=== PATIENT | female | born 1935 | race Caucasian/White ===

== ENCOUNTER 2016-12-17 14:50 | Observation (INO) ==
--- NOTE | 2016-12-17 15:33 | Emergency Department Note ---
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 No history of prior TIA no history of cardiac abnormalities. Patient states he is visiting her sister senior care and her younger sister states that for about a 5 minute spell patient was unable to engage in any activities and was awake but unable to engage or comprehend any activities. Patient states that she was not too alarmed by her symptoms 2 days ago but spoke to her PCP is today and was directed to come to the ED. Patient is from out of town and this is her first time here. Patient admits to pain over the right eye and patient's sister reports some flushing of her right cheek at the time of the incident. But does not complain of that now. Patient also states she has some numbness and tingling in her left hand. Patient has a history of thyroidectomy This patient denies ever smoking or tobacco use. Denies illicit drug use. Symptom Onset Unknown: Yes Timing confirmed by: family member Symptoms Improving: No - Related Data Home Medications: Home Medications Medication Instructions Recorded Confirmed Aspirin Enteric Coated [Aspirin EC] 81 mg PO DAILY 12/17/16 12/17/16 Cholecalciferol (D-3) [Vitamin D] 1,000 unit PO DAILY 12/17/16 12/17/16 Cyanocobalamin (Vitamin B-12) 100 mcg PO DAILY 12/17/16 12/17/16 [Vitamin B-12] Krill/Om-3/Dha/Epa/Phospho/Ast 1 each PO DAILY 12/17/16 12/17/16 [Krill Oil 1,000 mg Softgel] Levothyroxine [Synthroid] 50 mcg PO 0630 12/17/16 12/17/16 Turmeric Root Extract [Turmeric] 500 mg PO DAILY 12/17/16 12/17/16 Ubidecarenone [Co Q-10] 100 mg PO DAILY 12/17/16 12/17/16 Allergies/Adverse Reactions: Allergies Allergy/AdvReac Type Severity Reaction Status Date / Time No Known Allergies Allergy Verified 12/17/16 15:25 Review of Systems: Denies fevers, chills, nausea, vomiting, lightheadedness, dizziness, facial drooping, difficulty speaking, numbness and tingling elsewhere, weakness unilateral or global. Patient denies heart palpitations chest pain shortness of breath as well. Patient denies signs dysuria, no stool incontinence. All systems ED: reviewed and negative except as stated. Review of Systems: As Per HPI Limitations: ROS unobtainable due to patients medical condition Past Medical History - Past Medical History Attestation: Yes The following information was validated with the patient. Source: patient, obtained from family (Sister present in the room) Medical history: Reports: thyroid disease Psychiatric history: Reports: no psych history - Social History Smoking Status: Never smoker Smokeless Tobacco Status: No Alcohol use: Reports: none Drug use: Reports: none Physical Exam Vital Signs Temperature 98.2 F 12/17/16 15:03 Pulse Rate 62 12/17/16 15:03 Respiratory Rate 16 12/17/16 15:03 Blood Pressure 177/73 12/17/16 15:03 O2 Sat by Pulse Oximetry 99 12/17/16 15:03 Temperature 98.2 F 12/17/16 15:03 Pulse Rate 62 12/17/16 15:03 Respiratory Rate 16 12/17/16 15:03 Blood Pressure 177/73 12/17/16 15:03 O2 Sat by Pulse Oximetry 99 12/17/16 15:03 Oxygen Delivery Oxygen Delivery Room Air -General Appearance: Patient is a 81-year-old female who is alert and oriented 3 and in no acute distress. Patient appears comfortable and smiles. Absent moved to the right side of patient's bed because patient is unable to see on the left half of visual field -Neurological exam: Cranial nerves II-12 intact, no focal deficits observed, strength equal 5/5 bilaterally in upper and lower extremities, cerebellar motion test negative. Negative loss of sensation, patient able to perform rapid also a movements of hand, there is a rub he will of right leg down the left foster and alternate. - Head Head exam: atraumatic, normocephalic, normal inspection - Eye Eye exam: Present: normal appearance, PERRL, EOMI, negative for scleral icterus negative for conjunctival pallor - ENT ENT exam: normal exam, normal oropharynx, mucous membranes moist - Neck Neck exam: Present: normal inspection, full ROM, trachea midline, negative JVD - Chest Chest inspection: Present: Patient has bilateral equal rise and fall of chest wall. Non-tender to palpation. - Respiratory Respiratory exam: Clear to auscultation bilaterally without wheezes rales or rhonchi Cardiovascular Cardiovascular exam: Present: regular rate, normal rhythm, normal heart sounds, without murmurs rubs or gallops. - Abdominal Exam Abdominal exam: Present: soft, nondistended, Non-Tender light and deep palpation in all quadrants. Bowel sounds normoactive throughout all 4 quadrants. Negative for hyper or hyperresonance. - Extremities Exam Extremities exam: Present: normal inspection, full ROM - Back Exam Back exam: Present: normal inspection, full ROM. Absent: tenderness, CVA tenderness (R), CVA tenderness (L) - Psychiatric Psychiatric exam: Present: normal affect, normal mood - Skin Skin exam: Present: warm, dry, intact, normal color - General Limitations: no limitations General appearance: alert Course - Reevaluation(s) Reevaluation #1: Patient seen and examined. The patient sent to CT for CT head without contrast and CTA. Time: 16:00 Reevaluation #2: Patient doing well no change in patient's current symptoms no additional new symptoms. Time: 16:25 Reevaluation #3: Patient soda well no change in patient's symptoms patient lying comfortably. Patient asks about how long her stay will be inpatient. I explained that it depends on her course of treatment. Patient states she understands. Time: 17:06 Additional Reevaluation(s): Patient's sister passed about the patient will be able to fly back home to [place] if she is released after any contraindications terrifying under current condition. Patient to discuss with Dr. Sharif during admission. Patient's sister states that she will ask. - Consultations Consultation #1: Dr. Brewster the hospitalist has accepted the patient for admission. I discussed the case with him and he understands Dr. Sharif will be seeing patient tommorow Time: 16:33 Consultation #2: Discussed the case with Dr. Serra neurologist who states admit patient to medicine and he will see patient in the morning. Advised aspirin only Time: 16:45 Vital Signs Temperature 98.2 F 12/17/16 15:03 Pulse Rate 62 12/17/16 15:03 Respiratory Rate 16 12/17/16 15:03 Blood Pressure 177/73 12/17/16 15:03 O2 Sat by Pulse Oximetry 99 12/17/16 15:03 Temperature 98.1 F 12/17/16 23:34 Pulse Rate 55 12/17/16 23:34 Respiratory Rate 18 12/17/16 23:34 Blood Pressure 140/75 12/17/16 23:34 O2 Sat by Pulse Oximetry 96 12/17/16 23:34 Oxygen Delivery Oxygen Delivery Room Air Neuro Symptoms/Deficit - MDM Narrative Medical decision making narrative: NIH score 1 - Medical Records Medical records reviewed: Yes I reviewed the patient's medical records. No past medical records in the system for this patient's this is her first time. She is from out [facility] - Lab Data Lab results reviewed: Yes I reviewed the patient's lab results. Lab results narrative: Short CBC 12/17/16 Range/Units 15:49 WBC 8.3 (4.3-11.1) K/mcL Hgb 13.4 (11.5-15.4) g/dL Hct 41.5 (35.3-44.9) % Plt Count 217 (140-400) K/mcL Neutrophils # 5.5 (1.6-8.9) K/mcL BMP 12/17/16 Range/Units 15:49 Sodium 136 (136-145) mEq/L Potassium 4.6 H (3.5-4.5) mEq/L Chloride 101 (98-109) mEq/L Carbon Dioxide 30 H (19-29) mEq/L BUN 17 (7-20) mg/dL Creatinine 0.76 (0.57-1.11) mg/dL Glucose 85 (70-99) mg/dL Calcium 8.9 (8.6-10.8) mg/dL Cardiac Enzymes 12/17/16 Range/Units 15:49 Troponin I 0.00 (0-0.03) ng/mL Urine 12/17/16 Range/Units 15:56 Urine Color Yellow (Yellow) Urine Clarity Clear (Clear) Urine pH 6.5 (5.0-8.0) pH Units Ur Specific Tilly 1.015 (1.010-1.025) Urine Protein Negative (Neg-Trace) mg/dL Urine Glucose (UA) Normal (Normal) mg/dL Result diagrams: 12/17/16 15:49 12/17/16 15:49 Lab Results 12/17/16 12/17/16 12/17/16 Range/Units 15:49 15:49 15:49 WBC 8.3 (4.3-11.1) K/mcL RBC 4.47 (3.82-4.97) M/mcL Hgb 13.4 (11.5-15.4) g/dL Hct 41.5 (35.3-44.9) % MCV 92.8 (83.0-100.0) fL MCH 30.0 (28.0-33.3) pg MCHC 32.3 (31.6-35.5) g/dL RDW 12.8 (11.5-14.5) % Plt Count 217 (140-400) K/mcL MPV 9.6 (9.4-12.4) fL Immature Gran % 0.5 (0-4) % Seg Neutrophils % 67.0 % Lymphocytes % 21.2 % Monocytes % 9.3 % Eosinophils % 1.8 % Basophils % 0.2 % Neutrophils # 5.5 (1.6-8.9) K/mcL Lymphocytes # 1.8 (0.6-4.6) K/mcL Monocytes # 0.8 (0.0-1.3) K/mcL Eosinophils # 0.2 (0.0-0.6) K/mcL Basophils # 0.0 (0.0-0.2) K/mcL ESR 9 (0-15) mm/hr Sodium 136 (136-145) mEq/L Potassium 4.6 H (3.5-4.5) mEq/L Chloride 101 (98-109) mEq/L Carbon Dioxide 30 H (19-29) mEq/L BUN 17 (7-20) mg/dL Creatinine 0.76 (0.57-1.11) mg/dL Est GFR ( Amer) > 60 (> 60) Est GFR (Non-Af Amer) > 60 (> 60) BUN/Creatinine Ratio 22 (6-26) Glucose 85 (70-99) mg/dL Calculated Osmolality 283 (280-300) Calcium 8.9 (8.6-10.8) mg/dL Troponin I (0-0.03) ng/mL Urine Color (Yellow) Urine Clarity (Clear) Urine pH (5.0-8.0) pH Units Ur Specific Tilly (1.010-1.025) Urine Protein (Neg-Trace) mg/dL Urine Glucose (UA) (Normal) mg/dL Urine Ketones (Negative) mg/dL Urine Blood (Negative) Urine Nitrite (Negative) Urine Bilirubin (Negative) Urine Urobilinogen (Normal) mg/dL Ur Leukocyte Esterase (Negative) Urine Microscopic RBC (0-3) per hpf Urine Microscopic WBC (0-3) per hpf Ur Squamous Epith Cells (None-Few) per lpf Urine Bacteria (None-Few) per hpf Hyaline Casts (None-Few) per lpf Ur Culture Indicated? (NO) 12/17/16 12/17/16 12/17/16 Range/Units 15:49 15:56 20:46 WBC (4.3-11.1) K/mcL RBC (3.82-4.97) M/mcL Hgb (11.5-15.4) g/dL Hct (35.3-44.9) % MCV (83.0-100.0) fL MCH (28.0-33.3) pg MCHC (31.6-35.5) g/dL RDW (11.5-14.5) % Plt Count (140-400) K/mcL MPV (9.4-12.4) fL Immature Gran % (0-4) % Seg Neutrophils % % Lymphocytes % % Monocytes % % Eosinophils % % Basophils % % Neutrophils # (1.6-8.9) K/mcL Lymphocytes # (0.6-4.6) K/mcL Monocytes # (0.0-1.3) K/mcL Eosinophils # (0.0-0.6) K/mcL Basophils # (0.0-0.2) K/mcL ESR (0-15) mm/hr Sodium (136-145) mEq/L Potassium (3.5-4.5) mEq/L Chloride (98-109) mEq/L Carbon Dioxide (19-29) mEq/L BUN (7-20) mg/dL Creatinine (0.57-1.11) mg/dL Est GFR ( Amer) (> 60) Est GFR (Non-Af Amer) (> 60) BUN/Creatinine Ratio (6-26) Glucose (70-99) mg/dL Calculated Osmolality (280-300) Calcium (8.6-10.8) mg/dL Troponin I 0.00 0.00 (0-0.03) ng/mL Urine Color Yellow (Yellow) Urine Clarity Clear (Clear) Urine pH 6.5 (5.0-8.0) pH Units Ur Specific Tilly 1.015 (1.010-1.025) Urine Protein Negative (Neg-Trace) mg/dL Urine Glucose (UA) Normal (Normal) mg/dL Urine Ketones Negative (Negative) mg/dL Urine Blood Negative (Negative) Urine Nitrite Negative (Negative) Urine Bilirubin Negative (Negative) Urine Urobilinogen Normal (Normal) mg/dL Ur Leukocyte Esterase Trace H (Negative) Urine Microscopic RBC 0-3 (0-3) per hpf Urine Microscopic WBC 0-3 (0-3) per hpf Ur Squamous Epith Cells Few (None-Few) per lpf Urine Bacteria None Seen (None-Few) per hpf Hyaline Casts None Seen (None-Few) per lpf Ur Culture Indicated? YES A (NO) - Radiology Data Radiology results reviewed: Yes I reviewed the patient's radiology results. Angiography CT 12/17/16 15:21 IMPRESSION: 1. Acute right medial occipital lobe infarct, in the right posterior cerebral artery vascular territory distribution. 2. No current flow-limiting stenosis of the right posterior cerebral artery. No intracranial flow-limiting stenosis or aneurysm. 3. Unremarkable CTA of the neck. 4. There is a 2.8 cm left thyroid nodule. Recommend further evaluation with thyroid ultrasound on a nonemergent basis. Findings were discussed with Dr. Bernal, Emergency Medicine resident, at 4:14 pm on 12/17/2016. D/ / 12/17/2016 16:15:29 Blake Juan MD / earnold Interpreting Provider: Blake Juan MD Neck CTA 12/17/16 15:21 IMPRESSION: 1. Acute right medial occipital lobe infarct, in the right posterior cerebral artery vascular territory distribution. 2. No current flow-limiting stenosis of the right posterior cerebral artery. No intracranial flow-limiting stenosis or aneurysm. 3. Unremarkable CTA of the neck. 4. There is a 2.8 cm left thyroid nodule. Recommend further evaluation with thyroid ultrasound on a nonemergent basis. Findings were discussed with Dr. Bernal, Emergency Medicine resident, at 4:14 pm on 12/17/2016. D/ / 12/17/2016 16:15:29 Blake Juan MD / earnold Interpreting Provider: Blake Juan MD Chest X-Ray 12/17/16 15:27 IMPRESSION: Normal chest x-ray D/ / Merlin Dallas MD / Merlin Dallas MD Interpreting Provider: Merlin Dallas MD Brain MRI 12/17/16 17:19 IMPRESSION: Acute right occipitotemporal lobe infarct. D/ / Damir Morales MD / Damir Morales MD Interpreting Provider: Damir Morales MD Head MRA 12/17/16 17:19 IMPRESSION: Acute right occipitotemporal lobe infarct. D/ / Damir Morales MD / Damir Morales MD Interpreting Provider: Damir Morales MD - EKG Data EKG attestation: Yes I reviewed and interpreted this EKG. EKG results narrative: EKG taken to December 2016 at 1507 hrs. shows a sinus rhythm at a rate of 60 bpm with no acute ST elevations or depressions any leads widening or QT prolongation. No previous EKG for comparison. NIH Stroke Scale - Level of Consciousness LOC: Alert - LOC Questions LOC Questions: Answers both correctly - LOC Commands LOC Commands: Performs both correctly - Best Gaze Best Gaze: Normal - Visual Visual: Partial hemianopia - Facial Palsy Facial Palsy: Normal - Motor Arms Motor Arm-Left: No drift for 10 seconds Motor Arm-Right: No drift for 10 seconds - Motor Legs Motor Leg-Left: No drift for 5 seconds Motor Leg-Right: No drift for 5 seconds - Limb Ataxia Limb Ataxia: Absent of affected limb too weak to perform exam - Sensory Sensory: Normal - Best Language Best Language: No aphasia - Dysarthria Dysarthria: Normal Dysarthria Comment: none TPA Checklist - LKW: 3-4.5 hrs Add. Warnings/Precautions Patient/family understanding: The patient/family members have been counseled and understood the risk, benefit , and alternatives of treatment.
[2016-12-17] MEDS ORDERED: Tetracaine 0.5% OPTH 80 DROP/4 ML BOTTLE LEFT EYE ONE (15:34)
[2016-12-17] MEDS ORDERED: Tetracaine 0.5% OPTH 80 DROP/4 ML BOTTLE RIGHT EYE ONE (15:34)
[2016-12-17 16:10] LABS: Basophils % 0.2 %; Eosinophils # 0.2 K/mcL (0.0-0.6); Eosinophils % 1.8 %; Hematocrit 41.5 % (35.3-44.9); Hemoglobin 13.4 g/dL (11.5-15.4); Immature Granulocytes % 0.5 % (0-4); Lymphocytes # 1.8 K/mcL (0.6-4.6); Lymphocytes % 21.2 %; Mean Corpuscular HGB Conc 32.3 g/dL (31.6-35.5); Mean Corpuscular Volume 92.8 fL (83.0-100.0); Mean Platelet Volume 9.6 fL (9.4-12.4); Monocytes # 0.8 K/mcL (0.0-1.3); Monocytes % 9.3 %; Neutrophils # 5.5 K/mcL (1.6-8.9); Platelet Count 217 K/mcL (140-400); Red Blood Count 4.47 M/mcL (3.82-4.97); Red Cell Distribution Width 12.8 % (11.5-14.5)
[2016-12-17 16:25] LABS: BUN/Creatinine Ratio 22 (6-26); Blood Urea Nitrogen 17 mg/dL (7-20); Calcium 8.9 mg/dL (8.6-10.8); Carbon Dioxide 30 mEq/L (19-29); Chloride 101 mEq/L (98-109); Glucose 85 mg/dL (70-99); Osmolality,Calculated 283 (280-300); Potassium 4.6 mEq/L (3.5-4.5); Sodium 136 mEq/L (136-145); eGFR For African Americans > 60 (> 60); eGFR For Non-African Americans > 60 (> 60)
[2016-12-17 16:28] LABS: Bilirubin,Urine Negative (Negative); Blood,Urine Negative (Negative); Clarity,Urine Clear (Clear); Color,Urine Yellow (Yellow); Glucose,Urine (UA) Normal (Normal); Ketones,Urine Negative (Negative); Leukocyte Esterase,Urine Trace (Negative); Nitrite,Urine Negative (Negative); PH,Urine 6.5 pH Units (5.0-8.0); Protein,Urine Negative (Neg-Trace); Specific Gravity,Urine 1.015 (1.010-1.025); Urobilinogen,Urine Normal (Normal)
[2016-12-17 16:41] LABS: Bacteria,Urine None Seen per hpf (None-Few); Hyaline Casts,Urine None Seen per lpf (None-Few); RBC,Urine 0-3 per hpf (0-3); Squamous Epithelial Cell,Urine Few per lpf (None-Few); WBC,Urine 0-3 per hpf (0-3)
[2016-12-17] MEDS ORDERED: Naloxone 0.4 MG/ML INJ IVP PRN (17:14)
[2016-12-17] MEDS ORDERED: Acetaminophen 325 MG TABLET PO PRN (17:14)
--- NOTE | 2016-12-17 17:28 | Internal Med History&Physical ---
<Graciela Fallon - Last Filed: 12/17/16 18:07> Date of Encounter: 12/17/16 Time of Encounter: 17:28 Assessment and Plan (1) Acute CVA (cerebrovascular accident) Current visit: Yes Status: Acute 1 she has been rinsing 2 days of visual disturbance. She states she is unable to see out of her left periphery. She denies any weakness or difficulty speaking and swallowing headaches palpitation. CTA of head Acute right medial occipital lobe infarct, in the right posterior cerebral artery vascular territory distribution. 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 Calderon is a 81 year old female past medical history of hypothyroid-Tremaine 's arthritis overactive bladder. Patient states that he has been experiencing left-sided peripheral vision loss for approximately 2 days. It did start her on Thursday she did take 2 baby aspirin. Yesterday she was visiting her sister at a long-term when she experienced an episode where she was unable to see or interact/comprehend those around her. She did not lose consciousness her sister who witnessed the episode described it as if she was absent. The episode lasted approximately 4-5 minutes and resolved patient -returned back to baseline. Prior to the episode the patient did admit to some left eye discomfort. She also experienced numbness and tingling in her left hand. She denies any fevers chills nausea vomiting diarrhea chest pain headaches palpitations or shortness of breath. She continues to experience loss of peripheral vision in her left eye. She denies any weakness and difficulty ambulating swallowing or facial droop. She presented to the ER with the above complaints. Lab work was obtained in the ER which was unremarkable CTA Acute right medial occipital lobe infarct, in the right posterior cerebral artery vascular territory distribution. ER physician did speak with neurology who will see patient. She has been admitted for further workup and evaluation. Presently the patient denies any headache chest pain or palpitations. She does not appear to be in any respiratory distress. Her lung sounds are clear heart sounds are regular S1-S2 no murmurs clicks Murmurs noted abdomen soft nontender. No pedal edema noted. she has some difficulty describing vision, she admits that she is unable to see in her L periphery however she is unsure about changes in her R periphery. Cranial nerves II are 12 are intact she has equal strength in all 4 extremities there is no facial droop. She is hemodynamically stable this time. I reviewed this case with Dr Brewster who agrees with plan Past Med Surg Social Fam HX - Past Medical History Medical history: thyroid disease Psychiatric history: no psych history - Social History Smoking Status: Never smoker Smokeless Tobacco Status: No Alcohol use: none Drug use: none - Family History Mother Living Status: Hx Family Neurologic Disorders: Yes (TIA) Father Living Status: Cause of : heart Sister Living Status: Still Living Hx Family Neurologic Disorders: Yes (TIA) Internal Medicine - H&P: Meds Aspirin Enteric Coated [Aspirin EC] 81 mg PO DAILY 12/17/16 [History] Cholecalciferol (D-3) [Vitamin D] 1,000 unit PO DAILY 12/17/16 [History] Cyanocobalamin (Vitamin B-12) [Vitamin B-12] 100 mcg PO DAILY 12/17/16 [History] Krill/Om-3/Dha/Epa/Phospho/Ast [Krill Oil 1,000 mg Softgel] 1 each PO DAILY 07/04 [History] Levothyroxine [Synthroid] 50 mcg PO 0630 12/17/16 [History] Turmeric Root Extract [Turmeric] 500 mg PO DAILY 12/17/16 [History] Ubidecarenone [Co Q-10] 100 mg PO DAILY 12/17/16 [History] Allergies No Known Allergies Allergy (Verified 12/17/16 15:25) All Systems PM: A 10-system review of systems was performed and is negative for pertinent findings except as documented above in the HPI. - Constitutional Constitutional: no chills, no fever(s), no night sweats - EENT Eyes: change in vision, loss of peripheral vision Ears: no ear discharge, no ear pain, no tinnitus Nose, mouth and throat: no dysphagia, no nasal discharge, no neck pain, no sore throat - Cardiovascular Cardiovascular ROS IM: no chest pain, no diaphoresis, no dyspnea, no lightheadedness, no palpitations, no syncope - Respiratory Respiratory: no cough, no dyspnea, no wheezing, no excessive phlegm production - Gastrointestinal Gastrointestinal: no abdominal pain, no diarrhea, no hematemesis, no hematochezia, no melena, no nausea, no vomiting - Genitourinary Genitourinary: no change in urinary stream, no dysuria, no flank pain, no hematuria - Musculoskeletal Musculoskeletal ROS IM: arthralgias, no numbness, no tingling - Integumentary Integumentary IM: no rash, no unusual bruising - Neurological Neurological ROS: no confusion, no convulsions, no focal weakness, no numbness, no tingling, no tremor(s) - Hematologic/Lymphatic Hematologic/Lymphatic: no easy bruising - Constitutional Vitals: Temp Pulse Resp BP Pulse Ox 98.2 F 55 16 174/83 98 12/17/16 15:03 12/17/16 17:18 12/17/16 17:18 12/17/16 17:18 12/17/16 17:18 General appearance: Present: A&O X 3, answers questions appropriately - Head Head exam: Present: atraumatic, normocephalic - Eye Eye exam: Present: PERRL, conjuntiva pink, sclera anicteric Pupils: Present: PERRL - Neck Neck exam general surgery: Present: supple, trachea midline. Absent: lymphadenopathy - Respiratory Respiratory exam: Present: CTAB. Absent: accessory muscle use, rales, rhonchi, wheezes - Cardiovascular Cardiovascular exam: Present: RRR, +S1, +S2. Absent: diastolic murmur, gallop, rubs, systolic murmur - GI/Abdominal GI/Abdominal exam: Present: normal bowel sounds, soft, no peritoneal signs. Absent: distended, tenderness - Extremities Exam Extremities exam: Present: warm, radial pulses palpable and symetrical. Absent : calf tenderness, cyanotic, pedal edema - Neurological Exam Neurological exam: Present: CN II-XII intact, oriented X3, no focal deficits, strengths equal and symetr throughout. Absent: pronater drift, facial droop, speech deficit - Expanded Neurological Exam Cerebellar function: finger to nose: Normal Neuro motor strength exam: LUE: 5, RUE: 5, LLE: 5, RLE: 5 Coma Scale Eye Opening: Spontaneous Coma Scale Motor Response: Obeys Commands Coma Scale Verbal Response: Oriented Coma Scale Total: 15 - Skin Skin exam: Present: dry, intact Internal Med - H&P Results - Labs CBC & Chem 7: 12/17/16 15:49 12/17/16 15:49 Labs: Short CBC 12/17/16 Range/Units 15:49 WBC 8.3 (4.3-11.1) K/mcL Hgb 13.4 (11.5-15.4) g/dL Hct 41.5 (35.3-44.9) % Plt Count 217 (140-400) K/mcL Neutrophils # 5.5 (1.6-8.9) K/mcL BMP 12/17/16 15:49 Sodium 136 Potassium 4.6 H Chloride 101 Carbon Dioxide 30 H BUN 17 Creatinine 0.76 Glucose 85 Calcium 8.9 Cardiac Enzymes 12/17/16 Range/Units 15:49 Troponin I 0.00 (0-0.03) ng/mL Urine 12/17/16 Range/Units 15:56 Urine Color Yellow (Yellow) Urine Clarity Clear (Clear) Urine pH 6.5 (5.0-8.0) pH Units Ur Specific [place] 1.015 (1.010-1.025) Urine Protein Negative (Neg-Trace) mg/dL Urine Glucose (UA) Normal (Normal) mg/dL - EKG Data EKG shows normal: sinus rhythm - EKG Data Prior EKG available for review: no - Impressions ITS Impressions Angiography CT 12/17/16 15:21 IMPRESSION: 1. Acute right medial occipital lobe infarct, in the right posterior cerebral artery vascular territory distribution. 2. No current flow-limiting stenosis of the right posterior cerebral artery. No intracranial flow-limiting stenosis or aneurysm. 3. Unremarkable CTA of the neck. 4. There is a 2.8 cm left thyroid nodule. Recommend further evaluation with thyroid ultrasound on a nonemergent basis. Findings were discussed with Dr. Bernal, Emergency Medicine resident, at 4:14 pm on 12/17/2016. D/ / 12/17/2016 16:15:29 Blake Juan MD / [email or web address] Interpreting Provider: Blake Juan MD Neck CTA 12/17/16 15:21 IMPRESSION: 1. Acute right medial occipital lobe infarct, in the right posterior cerebral artery vascular territory distribution. 2. No current flow-limiting stenosis of the right posterior cerebral artery. No intracranial flow-limiting stenosis or aneurysm. 3. Unremarkable CTA of the neck. 4. There is a 2.8 cm left thyroid nodule. Recommend further evaluation with thyroid ultrasound on a nonemergent basis. Findings were discussed with Dr. Bernal, Emergency Medicine resident, at 4:14 pm on 12/17/2016. D/ / 12/17/2016 16:15:29 Blake Juan MD / [email or web address] Interpreting Provider: Blake Juan MD Chest X-Ray 12/17/16 15:27 IMPRESSION: Normal chest x-ray D/ / Merlin Dallas MD / Merlin Dallas MD Interpreting Provider: Merlin Dallas MD - Diagnostic Studies Other Images Additional comments: Angiography CT 12/17/16 15:21 IMPRESSION: 1. Acute right medial occipital lobe infarct, in the right posterior cerebral artery vascular territory distribution. 2. No current flow-limiting stenosis of the right posterior cerebral artery. No intracranial flow-limiting stenosis or aneurysm. 3. Unremarkable CTA of the neck. 4. There is a 2.8 cm left thyroid nodule. Recommend further evaluation with thyroid ultrasound on a nonemergent basis. Findings were discussed with Dr. Bernal, Emergency Medicine resident, at 4:14 pm on 12/17/2016. D/ / 12/17/2016 16:15:29 Blake Juan MD / [email or web address] Interpreting Provider: Blake Juan MD Neck CTA 12/17/16 15:21 IMPRESSION: 1. Acute right medial occipital lobe infarct, in the right posterior cerebral artery vascular territory distribution. 2. No current flow-limiting stenosis of the right posterior cerebral artery. No intracranial flow-limiting stenosis or aneurysm. 3. Unremarkable CTA of the neck. 4. There is a 2.8 cm left thyroid nodule. Recommend further evaluation with thyroid ultrasound on a nonemergent basis. Findings were discussed with Dr. Bernal, Emergency Medicine resident, at 4:14 pm on 12/17/2016. D/ / 12/17/2016 16:15:29 Blake Juan MD / [email or web address] Interpreting Provider: Blake Juan MD Chest X-Ray 12/17/16 15:27 IMPRESSION: Normal chest x-ray D/ / Merlin Dallas MD / Merlin Dallas MD Interpreting Provider: Merlin Dallas MD <Tretnon Pennington H - Last Filed: 12/18/16 11:28> Date of Encounter: 12/18/16 Internal Medicine - H&P: HPI History of present illness: Ms. Calderon is a 81 year old female All Systems PM: A 10-system review of systems was performed and is negative for pertinent findings except as documented above in the HPI. - Constitutional Vitals: Temp Pulse Resp BP Pulse Ox 97.4 F L 65 18 147/74 97 12/18/16 07:09 12/18/16 07:09 12/18/16 07:09 12/18/16 07:09 12/18/16 07:09 Internal Med - H&P Results - Labs CBC & Chem 7: 12/18/16 02:39 12/18/16 02:39 Labs: Short CBC 12/18/16 Range/Units 02:39 WBC 8.5 (4.3-11.1) K/mcL Hgb 12.8 (11.5-15.4) g/dL Hct 39.5 (35.3-44.9) % Plt Count 202 (140-400) K/mcL Neutrophils # 5.6 (1.6-8.9) K/mcL BMP 12/18/16 02:39 Sodium 140 Potassium 4.6 H Chloride 105 Carbon Dioxide 27 BUN 15 Creatinine 0.78 Glucose 94 Calcium 8.9 Cardiac Enzymes 08/02/17 08/03/17 Range/Units 20:46 02:39 Troponin I 0.00 0.00 (0-0.03) ng/mL - Impressions ITS Impressions Echocardiogram 12/18/16 17:34 Impressions: LVEF 60%. Normal left ventricular size and systolic function. Indeterminate left ventricular diastolic function. Normal right ventricular size and function. Moderate tricuspid regurgitation. Mild pulmonic regurgitation. No pulmonary hypertension based on TR gradient. No PFO with saline contrast. Left Ventricular Wall Motion: Rest Echo Findings All wall segments showed normal motion. Findings: Study Quality * Technically adequate exam. ECG Findings * Sinus bradycardia. Left Ventricle * LVEF 60%. * Basal sigmoid septum. No LVOTO. * Indeterminate diastolic function. Valsalva not performed. Aorta * Normally sized aortic root. Aortic Valve * No aortic regurgitation. * Trileaflet aortic valve. * Normal aortic valve structure. * No aortic stenosis. Mitral Valve * Normal mitral valve structure. * No mitral stenosis. * Trace mitral regurgitation. Tricuspid Valve * Normal tricuspid valve structure. * Moderate tricuspid regurgitation. * Estimated RA pressure is 3 mmHg. * Estimated RVSP is 26 mmHg. * No pulmonary hypertension. Pulmonic Valve * Pulmonic valve is not well visualized. * No pulmonic stenosis. * Mild pulmonic regurgitation. Pulmonary Artery * Pulmonary artery not well visualized. Right Ventricle * Normal right ventricular structure and function. Left Atrium * Moderate to severely dilated left atrium. Right Atrium * Normal right atrial size. Pericardium * There is no pericardial effusion present. Interatrial Septum * No evidence of PFO by color Doppler. * No evidence of PFO with agitated saline contrast. IVC * Normal IVC dimensions and inspiratory collapse. - Attending Attestation 1. 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 Hypothyroidism and history of Tremaine's, continue levothyroxine Omeprazole for GI prophylaxis and subcutaneous heparin for DVT prophylaxis. The patient will be admitted for observation, full code. Time spent on this admission 40 minutes. High risk due to acute CVA. For this encounter, I have reviewed the QA SPECIALIST or PA documentation, treatment plan, and medical decision making; and I have had face to face time with this patient.
--- NOTE | 2016-12-17 17:54 | Event Note ---
Date of Encounter: 12/17/16 Time of Encounter: 17:51 1. 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 Hypothyroidism and history of Tremaine's, continue levothyroxine Omeprazole for GI prophylaxis and subcutaneous heparin for DVT prophylaxis. The patient will be admitted for observation, full code. Time spent on this admission 40 minutes. High risk due to acute CVA. H&P to be completed by TERRI Fallon
--- NOTE | 2016-12-17 19:42 | Emergency Department Note ---
START Narrative - START START: I examined this patient and my medical decision-making was reviewed with the Resident Physician. I agree with the documented findings, disposition and treatment plan as described except to the extent set forth below. In summary this is a 81-year-old female presenting with concern for vision loss in her left eye. She has no history of CVA. She has no other focal neurological deficits. She actually had onset of symptoms on Thursday. Her INH score is 1 on arrival. She has isolated left eye visual disturbance. She underwent advanced imaging with CT angiography of the head and neck which showed a supple lobe infarct. There is concern that this likely is the etiology of her vision loss. As such she was started on full dose aspirin. Neurology was consult. The patient will be admitted the hospital service with frequent neuro checks. Bedside swallowing evaluation was completed. Greater than 35 minutes of critical care time was spent resuscitating this acutely ill patient suffering from CVA. This is excluding billable procedures. The patient be admitted to the hospital and remains in critical condition with high potential for life-threatening deterioration
[2016-12-17] MEDS: *HR* Heparin 5,000 UNIT/ML VIAL SQ SCH (21:54)
[2016-12-18 03:53] LABS: Basophils % 0.4 %; Eosinophils # 0.2 K/mcL (0.0-0.6); Eosinophils % 2.1 %; Hematocrit 39.5 % (35.3-44.9); Hemoglobin 12.8 g/dL (11.5-15.4); Immature Granulocytes % 0.6 % (0-4); Lymphocytes # 1.9 K/mcL (0.6-4.6); Lymphocytes % 21.8 %; Mean Corpuscular HGB Conc 32.4 g/dL (31.6-35.5); Mean Corpuscular Hemoglobin 29.9 pg (28.0-33.3); Mean Corpuscular Volume 92.3 fL (83.0-100.0); Mean Platelet Volume 10.1 fL (9.4-12.4); Monocytes # 0.8 K/mcL (0.0-1.3); Neutrophils # 5.6 K/mcL (1.6-8.9); Platelet Count 202 K/mcL (140-400); Red Blood Count 4.28 M/mcL (3.82-4.97); Segmented Neutrophils % 66.1 %
[2016-12-18 04:14] LABS: BUN/Creatinine Ratio 19 (6-26); Blood Urea Nitrogen 15 mg/dL (7-20); Calcium 8.9 mg/dL (8.6-10.8); Carbon Dioxide 27 mEq/L (19-29); Chloride 105 mEq/L (98-109); Chol/HDL Ratio 3.7 (0-4.9); Cholesterol 172 mg/dL (< 200); Glucose 94 mg/dL (70-99); HDL Cholesterol 47 mg/dL (40-59); LDL Cholesterol,Calculated 114 mg/dL (0-99); Magnesium 2.2 mg/dL (1.6-2.6); Osmolality,Calculated 291 (280-300); Potassium 4.6 mEq/L (3.5-4.5); Sodium 140 mEq/L (136-145); Triglycerides 57 mg/dL (< 150); eGFR For African Americans > 60 (> 60); eGFR For Non-African Americans > 60 (> 60)
[2016-12-18] MEDS: *HR* Heparin 5,000 UNIT/ML VIAL SQ SCH (05:26)
[2016-12-18] MEDS ORDERED: Aspirin 81 MG TAB.CHEW PO SCH (09:00)
[2016-12-18] MEDS ORDERED: Aspirin Enteric Coated 81 MG Tablet PO SCH (09:00)
--- NOTE | 2016-12-18 10:23 | Electrocardiograph Report ---
[place] [id number] Test Date: 2016-12-17 Pat Name: Brittney Calderon Department: 103 Room: 2NE18 Gender: F Cello Teacher: FREDI : 1935 Requested By: Ed Thrasher Order Number: [id number] Reading MD: Colin Cid MD Measurements Intervals [place] Rate: 60 P: 66 IN: 155 QRS: 59 QRSD: 88 T: 65 QT: 393 QTc: 394 Interpretive Statements SINUS RHYTHM BASELINE ARTIFACT Electronically Signed On 12-18-2016 10:21:45 EDT by Colin Cid MD
--- NOTE | 2016-12-18 14:00 | Neurology - Consult Note ---
Date of Encounter: 12/18/16 Time of Encounter: 13:51 Assessment and Plan (1) Acute CVA (cerebrovascular accident) Current Visit: Yes Status: Acute This patient has unfortunately experienced an acute right occipital temporal lobe infarct, likely due to hypertension acutely related to her stress levels. She has had a complete workup which was negative for any other obvious source. Currently she is better baseline with the exception of the left hemianopsia. I spoke at length with she and her sister about this event. All questions were answered. I did mention to her that she should not drive until cleared by another professional or by her local [facility]. Agree with aspirin, statins, and ongoing monitoring of her stroke risk factors after discharge. I did inform her that upon arrival to [place] she should get in to see her primary care provider as soon as possible. She will be discharged at your discretion. I will reevaluate her request. History of Present Illness HPI: Ms. Calderon is a 81 year old female who was seen for neurologic consultation secondary to an acute right occipital temporal lobe infarct. She is actually visiting [place] from [place] to check on an ailing relative. She came alone with her sister who was also visiting from [place]. Upon arrival she was quite upset and heartbroken about the condition of her ailing sister. This is quite stressful for her to see as her ailing sister has advanced Alzheimer's disease. Her other sister who actually drove from [place] first noticed on Thursday which was the day they arrive that her sister seemed to be a bit confused acutely and this lasted for about 2 minutes. After that she also however noticed some impairment of her left visual field. This did not improved by the following day which was Thursday and they then called their primary care provider in [place] advised her to go to the ED immediately for further assessment. She arrived here at [facility] on Thursday and was assessed throughout ED related to that she experienced an acute infarction in the right occipital temporal lobe region. Upon arrival her blood pressure was in the 170s over 80s. This has since stabilized. She had a complete workup including MRI scan of the brain with diffusion imaging review and acute right occipital temporal infarct. She has had echocardiogram which was negative carotid duplex Doppler studies were negative CT of the brain as well as MRA of the brain and neck were negative. It seems that she is experienced a cryptogenic event. Currently she is alert and oriented follow commands and answers questions appropriately. However the left homonymous hemianopsia remains. Past Med Surg Social Fam HX - Past Medical History Medical history: thyroid disease Psychiatric history: no psych history - Past Surgical History Surgical History: thyroidectomy - Social History Smoking Status: Never smoker Smokeless Tobacco Status: No Alcohol use: none Drug use: none - Family History Mother Living Status: Hx Family Neurologic Disorders: Yes (TIA) Father Living Status: Cause of : heart Sister Living Status: Still Living Hx Family Neurologic Disorders: Yes (TIA) Medications and Allergies Aspirin Enteric Coated [Aspirin EC] 81 mg PO DAILY 12/17/16 [History] Cholecalciferol (D-3) [Vitamin D] 1,000 unit PO DAILY 12/17/16 [History] Cyanocobalamin (Vitamin B-12) [Vitamin B-12] 100 mcg PO DAILY 12/17/16 [History] Krill/Om-3/Dha/Epa/Phospho/Ast [Krill Oil 1,000 mg Softgel] 1 each PO DAILY 07/04 [History] Levothyroxine [Synthroid] 50 mcg PO 0630 12/17/16 [History] Turmeric Root Extract [Turmeric] 500 mg PO DAILY 12/17/16 [History] Ubidecarenone [Co Q-10] 100 mg PO DAILY 12/17/16 [History] Allergies No Known Allergies Allergy (Verified 12/17/16 15:25) All Systems: A 10-system review of systems was performed and is negative for pertinent findings except as documented above in the HPI. Review of Systems: A 10 point review of systems is consistent with a history of present illness and is otherwise negative. Physical Examination - Vital Signs Vital Signs: Initial Vital Signs Temp Pulse Resp BP Pulse Ox 98.2 F 62 16 177/73 99 12/17/16 15:03 12/17/16 15:03 12/17/16 15:03 12/17/16 15:03 12/17/16 15:03 - Neurologic Detailed motor examination: full strength in all major muscle groups Motor examination - right side: 5/5: deltoids, biceps, triceps, wrist flexion, wrist extension, finishing tunnel operator, hip flexors, tibialis Anterior, quadriceps, toe extension (EHL), plantarflexion Motor examination - left side: 5/5: deltoids, biceps, triceps, wrist flexion, wrist extension, hip flexors, finishing tunnel operator, quadriceps, tibialis Anterior, toe extension (EHL), plantarflexion Mental Status Examination: awake, alert, oriented to person, oriented to place, oriented to time, follows commands appropriately, answers questions appropriately, no agnosia, no aphasia, no aproxia Cranial nerve examination: PERRL, EOMI, visual cook intact (The patient does have a left homonymous hemianopsia secondary to the right occipital temporal lobe infarct.), corneal reflexes brisk symmetrically, sensory to face intact, mastication intact, no facial asymmetry is present, no dysarthria, hearing is intact symmetrically, soft palate elevates bilaterally upon phonation, gag reflex intact, flexes SCM and trapezius muscles symmetrically with full power, tongue protrudes midline, no atrophy or facial fasiculations present Cerebellar examination: no dysmetria, performs finger to nose and heel to foster symmetrically without ataxia, no gait ataxia, no truncal ataxia, no difficulty with rapid alternating movements Results - Laboratory Findings CBC and BMP: 12/18/16 02:39 12/18/16 02:39 Abnormal lab findings: Abnormal lab results Potassium 4.6 mEq/L (3.5-4.5) H 12/18/16 02:39 LDL Cholesterol, Calc 114 mg/dL (0-99) H 12/18/16 02:39 Ur Leukocyte Esterase Trace (Negative) H 12/17/16 15:56 Ur Culture Indicated? YES (NO) A 12/17/16 15:56 Consult Discharge Plan - Plan Referrals: NONE,PCP [Primary Care Provider] - (patient has been in contact with her pcp and will make an appointment as soon as she gets back home)
--- NOTE | 2016-12-18 14:43 | Discharge Summary ---
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 Qualified Code(s): E03.8 - Other specified hypothyroidism; E06.3 - Autoimmune thyroiditis (4) DVT prophylaxis Priority: Secondary Status: Acute - Discharge Medications Prescriptions: Atorvastatin [Lipitor] 20 mg PO HS #30 tab Home Medications: Cholecalciferol (D-3) [Vitamin D] 1,000 unit PO DAILY 12/17/16 [History] Cyanocobalamin (Vitamin B-12) [Vitamin B-12] 100 mcg PO DAILY 12/17/16 [History] Krill/Om-3/Dha/Epa/Phospho/Ast [Krill Oil 1,000 mg Softgel] 1 each PO DAILY 07/04 [History] Levothyroxine [Synthroid] 50 mcg PO 0630 12/17/16 [History] Turmeric Root Extract [Turmeric] 500 mg PO DAILY 12/17/16 [History] Ubidecarenone [Co Q-10] 100 mg PO DAILY 12/17/16 [History] Acetaminophen [Tylenol] 650 mg PO Q6HR PRN tab 12/18/16 [Rx] Aspirin Enteric Coated [Aspirin EC] 325 mg PO DAILY #0 12/18/16 [Rx] Atorvastatin [Lipitor] 20 mg PO HS #30 tab 12/18/16 [Rx] Allergies/Adverse Reactions: Allergies No Known Allergies Allergy (Verified 12/17/16 15:25) Date of admission: 12/17/16 17:36 Primary care physician: PCP NONE Anticipated date of discharge: 12/18/16 - Patient Status Disposition: Home, Self-Care Condition: Fair Functional capacity at discharge: independent ambulation Overall status at discharge: patient is progressing back to baseline - Discharge Instructions Follow Up With: NONE,PCP [Primary Care Provider] - (patient has been in contact with her pcp and will make an appointment as soon as she gets back home) - Diet and Activity Activity: resume usual activities as tolerated Diet: advance to your usual diet Hospital course: Ms. Calderon is a 81 year old female - Time Spent with Patient Total time spent providing and/or coordinating discharge services: - Constitutional Vitals: Temp Pulse Resp BP Pulse Ox 98.2 F 66 18 147/74 98 12/18/16 11:00 12/18/16 11:53 12/18/16 11:00 12/18/16 11:53 12/18/16 11:00 General appearance: Present: A&O X 3, answers questions appropriately - Head Head exam: Present: atraumatic, normocephalic - Eye Eye exam: Present: PERRL, conjuntiva pink, sclera anicteric Pupils: Present: PERRL - Neck Neck exam general surgery: Present: supple, trachea midline. Absent: lymphadenopathy - Respiratory Respiratory exam: Present: CTAB. Absent: accessory muscle use, rales, rhonchi, wheezes - Cardiovascular Cardiovascular exam: Present: RRR, +S1, +S2. Absent: diastolic murmur, gallop, rubs, systolic murmur - GI/Abdominal GI/Abdominal exam: Present: normal bowel sounds, soft, no peritoneal signs. Absent: distended, tenderness - Extremities Exam Extremities exam: Present: warm, radial pulses palpable and symetrical. Absent : calf tenderness, cyanotic, pedal edema - Neurological Exam Neurological exam: Present: CN II-XII intact, oriented X3, no focal deficits. Absent: pronater drift, facial droop, speech deficit Additional comments: Left hemianopia otherwise nonfocal exam Romberg negative no ataxia noted - Skin Skin exam: Present: dry, intact
[2016-12-18 15:48] VITALS: BP 119/81
== END 2016-12-18 17:09 | disposition home or self-care (01) ==
LOC: EMEROO 14:50 → 2NENU 17:36 → INTOOBSV 17:36 → 2NENU 20:25
PROVIDERS: ADMIT Internal Medicine; ATTEND Internal Medicine